=== PATIENT | female | born 1960 | race African-American/Black ===

== ENCOUNTER 2017-01-03 11:54 | Emergency (ER) | payer MEDICAID ==
[~2017-01-03] VITALS: Ht 160 cm; Wt 88.9 kg
[2017-01-03 12:07] VITALS: BP 148/87
--- NOTE | 2017-01-03 12:20 | NUR ---
Dr. Evans evaluating patient at bedside.
--- NOTE | 2017-01-03 12:21 | NUR ---
PT PRESENTS TO ER FOR EVALUATION OF SOB SINCE THIS AM AND COUGH X1 WEEK. HX ASTHMA.DENIES N/V/D; SKIN IS PINK/WARM/DRY; AAOX4 WITH EVEN AND STEADY GAIT; LUNGS weezing BL; PATIENT STATES INSPIRATION MID CHEST WALL PAIN OF 5/10 AT THIS TIME; PATIENT POSITIONED FOR COMFORT; HOB ELEVATED; BEDRAILS UP X2; BED DOWN. ER MD MADE AWARE OF PT STATUS.
[2017-01-03] MEDS ORDERED: ALBUTEROL 0.083% 2.5 MG/3 ML NEBU INH ONE (12:30)
[2017-01-03] MEDS ORDERED: predniSONE 20 MG TAB PO ONE (12:30)
[2017-01-03] MEDS ORDERED: IPRATROPIUM 0.02% 0.5 MG/2.5 ML NEBU INH ONE (12:30)
--- NOTE | 2017-01-03 12:35 | NUR ---
RT AT BEDSIDE FOR BREATHING TREATMENT.
--- NOTE | 2017-01-03 12:39 | NUR ---
X RAY AT BEDSIDE.
--- NOTE | 2017-01-03 13:03 | NUR ---
Patient appears to be resting comfortably in bed. Vital Signs within normal limits. Respirations even and unlabored.WILL CONTINUE TO MONITOR.
--- NOTE | 2017-01-03 13:06 | NUR ---
Patient being reevaluated by DR FAITH at bedside. PT STATED " I FEEL BETTER".
[2017-01-03 13:10] VITALS: BP 127/69
--- NOTE | 2017-01-03 13:10 | NUR ---
Patient discharged with v/s stable. Written and verbal after care instructions given and explained. Patient alert, oriented and verbalized understanding of instructions. Ambulatory with steady gait. All questions addressed prior to discharge. ID band removed. Patient advised to follow up with PMD. Rx of PROMETHAZINE& PREDNISONE given. Patient educated on indication of medication including possible reaction and side effects. Opportunity to ask questions provided and answered.
== END 2017-01-03 13:10 | disposition home or self-care (01) ==
LOC: MED 11:54
DX: J45.901 Unspecified asthma with (acute) exacerbation (principal); B34.9 Viral infection, unspecified; R03.0 Elevated blood-pressure reading, without diagnosis of hypertension
CPT/HCPCS: 71010; 94640; 99283; J7512; J7613; J7644

== ENCOUNTER 2018-04-08 18:13 | Emergency (ER) | payer MEDICAID ==
[~2018-04-08] VITALS: Ht 165.1 cm; Wt 92.2 kg
[2018-04-08 19:07] VITALS: BP 144/95
--- NOTE | 2018-04-08 19:20 | NUR ---
PT AMBULAYED TO ED BE D11
[2018-04-08] MEDS ORDERED: predniSONE 20 MG TAB PO ONE (19:50)
--- NOTE | 2018-04-08 19:59 | NUR ---
PT PRESENTS TO ED FOR EVALUTAION OF POSSIBLE ALLERGIC REACTION. PT STATED HAD SNACK BAR 2 DAYS AGO THE STARTED ITCHING. AAO X4, GCS 15, RESPIRATIONS EVEN AND UNLABORED, BL LUNG CLEAR. SKIN WARM/PINK/DRY, +PMSC. LT UPPER LIP MILD SWOLLEN. VSS, NO ACUTE DISTRESS AT THIS TIME. WILL CONTINUE TO MONITOR
--- NOTE | 2018-04-08 20:12 | NUR ---
Patient discharged with v/s stable. Written and verbal after care instructions given and explained. Patient alert, oriented and verbalized understanding of instructions. Ambulatory with steady gait. All questions addressed prior to discharge. ID band removed. Patient advised to follow up with PMD. Rx of PREDNISONE 50 MG, EPIPEN 0.3 MG/0.3 ML, ALBUTEROL 90 MCG/ACTUATION, BENADRYL 25 MG given. Patient educated on indication of medication including possible reaction and side effects. Opportunity to ask questions provided and answered.
[2018-04-08 20:13] VITALS: BP 146/85
== END 2018-04-08 20:12 | disposition home or self-care (01) ==
LOC: MED 18:13
DX: L50.0 Allergic urticaria (principal); J45.909 Unspecified asthma, uncomplicated
CPT/HCPCS: 99283; J7512; Q0163